=== PATIENT | female | born 1950 | race Caucasian/White ===

== ENCOUNTER 2018-02-19 07:07 | Day surgery (SDC) | payer MEDICARE, OTHER, SELFPAY ==
[2018-02-19] VITALS (7 sets, daily range): BP systolic 93–140; BP diastolic 55–75; PULSE 39–69; RESP 12; TEMP 36.1; O2SAT 94–100
[2018-02-19 07:33] LABS: Hematocrit 41.8 % (37-47); Hemoglobin 14.1 g/dl (12.0-15.0); Mean Corp Hgb Conc 33.7 g/gl (32-36); Mean Corpuscular Hgb 29.9 pg (27.0-32.0); Mean Corpuscular Volume 88.7 fL (81-99); Platelet Count 396 K/mm3 (150-450); RBC Distribution Width CV 13.2 % (11.6-14.6); RBC Distribution Width SD 42.6 fl (35.1-43.9); Red Blood Count 4.71 M/mm3 (4.2-5.4); White Blood Count 7.9 K/mm3 (4.4-11.0)
[2018-02-19 07:37] LABS: Scan Indicated on CBC? Y/N NO
--- NOTE | 2018-02-19 08:40 | EMB_PTH ---
PATIENT: JOAN ARMENTA LOC: [facility] [place] U#:[id number] AGE/SX: 67/F ROOM: RE02/19/[address]: Dr. Linda Sloan, MDDOB: 1950 BED: DIS: 02/19/2018 SPEC #: [id number] RECD: 02/19/18 14:51 STATUS: MARELY MARIA R #: [id number] JOSE: 02/19/18 08:[address]: Linda Sloan DEPT: SURGICAL PATHOLOGY RECD BY: Keila Corea ENTERED: 02/20/18 09:01 SP TYPE: ENDOM BX/C JG DR: Dr. Venice Reynolds MD Tissues: Endometrium, NOS Procedures: Surgery Specimen Level IV HEADER OPERATION: Hysteroscopy, D&C, Symphion PRE-OP DIAGNOSIS: Thickened endometrium and endometrial polyp TISSUE SUBMITTED: Endometrial polyp and curettings MICROSCOPIC DIAGNOSIS Endometrial polyp and curettings: Focal simple cystic hyperplasia without atypia. HOLLY:margarito 02/23/18 COMMENT Please make reference to previous specimen ([id number]) endometrial curettings and polyp with diagnosis of consistent with fragments of endometrial polyp with focal simple hyperplasia without atypia. MICROSCOPIC DESCRIPTION Slides are reviewed. GROSS DESCRIPTION Received in fixative is one container labeled with the patient's name and designated endometrial polyp and curettings. The specimen consists of multiple irregular fragments of pink-dutton soft tissue that in aggregate measure 4.5 x 3.5 x 1 cm. The specimen is totally submitted in three cassettes. / AM:margarito 02/20/18 TC:5 CPT: 65296
--- NOTE | 2018-02-19 09:16 | PCM.OP.BLANK ---
Operative Report Date of Procedure: 02/19/[address] Linda Alexis-Hackett Envelope Machine Adjuster: none Preoperative diagnosis: PMB, Thickened endometrium, endometrial polyp Postoperative diagnosis: Same Procedure performed: Hysteroscopy, dilation and curettage, polypectomy using Symphion operative hysteroscope Complications: None Implantable devices: none Estimated blood loss: 5 cc Drains: None Anesthesia: MAC Specimens: Endometrial polyp and Curettings Fluid deficit: 370cc Informed consent was obtained the patient was taken the operating room she was placed in supine position. She was given anesthesia. She was then placed in the [facility] where she was prepped and draped in the normal sterile fashion. At this time the weighted speculum was placed in the posterior fornix of vagina. Single-tooth tenaculum was used to gently grasp the anterior lip the cervix. At this time the uterine cavity was sounded to approximately 7 cm. Gentle dilatation was performed once adequate dilatation of the cervix was achieved the hysteroscope using normal saline as a distention medium was placed. Large endometrial polyp noted. Otherwise no gross abnormalities. Tubal ostia visualized. Polypectomy performed under direct visualziation with symphion. Gentle Endometrial sample obtained with symphion operative scope as well. Cavity intact. small amount of endometrial tissue removed. This tissue will be sent to pathology for evaluation. Procedure was deemed complete successful there are no complications. Anticipated normal postoperative course. Instrument lap count correct ?2. Vaginal Sweep was negative.
--- NOTE | 2018-02-19 09:24 | PCM.DC.D&C ---
Discharge Diet: No Restrictions Discharge Activity: Return to Normal Activity, May Shower, May Take a Tub Bath - in 2 weeks. Allergies/Adverse Reactions: Allergies No Known Allergies Allergy (Verified 02/17/18 10:49) Medications to take at Discharge Abatacept [Orencia] 250 mg IV QMONTH 02/17/18 Aspirin [Aspirin, Baby] 81 mg PO DAILY@0800 02/17/18 Atenolol [Tenormin (beta dee)] 25 mg PO DAILY 02/17/18 Ibuprofen [Ibu] 600 mg PO DAILY PRN 02/17/18 Levothyroxine Sodium [Synthroid] 150 mcg PO DAILY 02/17/18 Primary Care Physician: Venice Reynolds [Primary Care Provider] - Test Results: Test results from this visit will be discussed in further detail at your follow-up appointment, if applicable.
== END 2018-02-19 10:39 | disposition home or self-care (01) ==
LOC: SDC 08:00 → AC 08:26
PROVIDERS: Family Provider Internal Medicine; PCP Internal Medicine; Visit Provider Obstetrics & Gynecology
PROC: (CPT 58558; principal; 2018-02-19 08:25)
DX: N84.0 Polyp of corpus uteri (principal); N95.0 Postmenopausal bleeding; M06.9 Rheumatoid arthritis, unspecified; I10 Essential (primary) hypertension; E03.9 Hypothyroidism, unspecified; E78.00 Pure hypercholesterolemia, unspecified; Z79.82 Long term (current) use of aspirin; Z79.899 Other long term (current) drug therapy; Z86.010 Personal history of colon polyps; Z87.19 Personal history of other diseases of the digestive system; Z86.711 Personal history of pulmonary embolism; Z87.891 Personal history of nicotine dependence; Z98.51 Tubal ligation status
CPT/HCPCS: 58558; 36415; 85027; 88305; J7120